=== PATIENT | male | born 1980 | race Caucasian/White ===

== ENCOUNTER 2017-03-25 18:05 | Emergency (ER) | payer OTHER ==
[~2017-03-25] VITALS: Ht 188 cm; Wt 86.4 kg
[2017-03-25 18:07] VITALS: TEMP 98.4
[2017-03-25 20:14] LABS: PH 7 (5-8); SQUAMOUS EPITHELIAL None Seen /hpf; URINE APPEARANCE Clear; URINE BACTERIA None Seen /hpf; URINE BILIRUBIN Negative (NEGATIVE); URINE BLOOD Negative (NEGATIVE); URINE COLOR Yellow; URINE GLUCOSE Negative (NEGATIVE); URINE KETONE Negative (NEGATIVE); URINE RBC 0-2 /hpf; URINE UROBILINOGEN Negative (NEGATIVE); URINE WBC 0-2 /hpf
[2017-03-25] MEDS ORDERED: PERCOCET 325 MG1 TA2 PO (20:34)
[2017-03-25] MEDS ORDERED: FLEXERIL 1010 MG/TAB PO (20:34)
[2017-03-25 20:45] VITALS: BP 131/86; PULSE 86
== END 2017-03-25 20:50 | disposition home or self-care (01) ==
LOC: COL.ER 18:05
PROVIDERS: Emergency Medicine
DX: M54.5 Low back pain (principal)
CPT/HCPCS: J1170; J2060